=== PATIENT | male | born 2005 | race Caucasian/White ===

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

== ENCOUNTER 2024-01-15 09:37 | Emergency (ER) | payer OTHER, SELFPAY ==
[2024-01-15 09:39] VITALS: BP 127/74; PULSE 85; RESP 16; TEMP 36.5; O2SAT 97
--- NOTE | 2024-01-15 09:54 | W.ED.SEIZURE ---
HPI - Seizure General: Chief Complaint: Seizure Stated Complaint: SEIZURES Time Seen by Provider: 01/15/24 09:43 Source: patient Mode of arrival: ambulatory History of Present Illness: HPI Narrative: 19-year-old female who presents to the emergency room with complaints of seizure. Has a known seizure disorder in the past was on medication he states it started that he was stopped taking approximately 3 years ago because it been so long since he had had a seizure. Patient states he was taking a medication that began with a T? (Tegretol). He is not currently seeing neurology. MD complaint: seizure Seizure History: Yes Place: [facility] Associated symptoms: Deny chest pain, chills, confusion, cough, diaphoresis, fever(s), anorexia, malaise, rash, short of breath, syncope or weakness Treatments prior to arrival: none Review of Systems Const: Denies: fever(s), chills, malaise or diaphoresis Card: Denies: chest pain or syncope Resp: Denies: dyspnea GI: Denies: abdominal pain : Denies: dysuria, urinary frequency or urinary urgency Musc: Denies: neck pain or back pain Skin/Breast: Denies: rash Neuro: Denies: confusion PFSH ED PFSH: Medical History (Updated 01/15/24 @ 10:29 by Robbie Bucio DO) Seizure disorder Physical Exam Const: COMMON NORMALS: no acute distress GENERAL APPEARANCE: cooperative and comfortable ORIENTATION/CONSCIOUSNESS: Yes awake, Yes oriented to person, Yes oriented to place and Yes oriented to time HENMT: COMMON NORMALS: normocephalic, atraumatic and hearing grossly normal bilaterally HEAD & SCALP: normocephalic and atraumatic Resp: COMMON NORMALS: normal respiratory effort, No retractions, No use of accessory muscles and clear to auscultation bilaterally AUSCULTATION: clear to auscultation bilaterally Cardio: COMMON NORMALS: regular rate, regular rhythm and No murmurs present (Cardio) RATE: regular rate RHYTHM: regular rhythm GI: COMMON NORMALS: Soft to palpation and No hepatosplenomegaly present AUSCULTATION: Yes normoactive bowel sounds PALPATION: Yes Soft to palpation, No Tenderness to palpation present (GI), No Guarding due to palpation present (GI) and Yes No hepatosplenomegaly present Extremity: COMMON NORMALS: normal to inspection, capillary refill normal, no clubbing, cyanosis or edema, no calf tenderness and no pedal edema Neuro: SENSORIUM/ORIENTATION: Yes oriented to person, Yes oriented to place and Yes oriented to time Skin: COMMON NORMALS: no rashes or lesions noted GENERAL SKIN EXAM: no rashes or lesions noted Course Vital Signs: Vital signs: Vital Signs Temperature 97.7 F 01/15/24 09:39 Pulse Rate 75 01/15/24 10:59 Respiratory Rate 15 01/15/24 10:59 Blood Pressure 109/55 01/15/24 10:59 Pulse Oximetry 100 01/15/24 10:59 Oxygen Delivery Me thod Room Air 01/15/24 09:39 MDM - Seizure MDM Narrative Medical decision making narrative: No recurrent seizures since arriving here CPK and lactic acid are both up to think is related to seizure. He is feeling better he is past postictal phase will discharge patient home we will set him up for outpatient EEG sleep deprived as well as a neurology consult. Return if is further seizures at this point with 1 breakthrough seizure associated with lack of sleep and alcohol use did not restart his anticoagulants. Medical Records Attestation: I reviewed the patient's medical records. Lab Data Attestation: I reviewed the patient's lab results. 01/15/24 09:27 Labs: Laboratory Results WBC 10.81 10^3/uL (4.5-13.0) 01/15/24 09:27 RBC 4.70 10^6/uL (3.85-5.65) 01/15/24 09:27 Hgb 14.50 g/dL (13.2-15.6) 01/15/24 09:27 Hct 43.8 % (37-53) 01/15/24 09:27 MCV 93.2 fl (82-101) 01/15/24 09: MCH 30.9 pg (27-33) 01/15/24 09: MCHC 33.1 g/dL (30-55) 01/15/24 09: RDW 13.1 % (12.1-15.1) 01/15/24 09: Plt Count 339 10^3/cmm (157-399) 01/15/24 09: MPV 8.6 fL (7.4-10.4) 01/15/24 09:27 Neut % (Auto) 52.9 % 01/15/24 09:27 Lymph % (Auto) 35.9 % 01/15/24 09:27 [place] % (Auto) 9.0 % 01/15/24 09:27 Eos % (Auto) 1.3 % 01/15/24 09:27 Baso % (Auto) 0.6 % 01/15/24 09:27 Neut # (Auto) 5.73 10^3/uL (1.8-8.0) 01/15/24 09:27 Lymph # (Auto) 3.9 10^3/uL (1.5-6.5) 01/15/24 09:27 [place] # (Auto) 1.0 10^3/uL (0.2-0.9) H 01/15/24 09:27 Eos # (Auto) 0.1 10^3/uL (0.0-0.8) 01/15/24 09:27 Baso # (Auto) 0.1 10^3/uL (0.0-0.1) 01/15/24 09:27 Nucleated RBC % (auto) 0 % 01/15/24 09:27 Nucleated RBCs # 0.0 /100WBC 01/15/24 09:27 Lactic Acid 11.0 mmol/L (0.5-2.2) H* 01/15/24 09:27 Creatine Kinase 352 U/L (39-308) H* 01/15/24 09:27 No radiology studies performed this visit Discharge Plan Discharge Patient Disposition: Home Clinical Impression: Generalized seizure Condition: Stable Prescriptions: No Action No Known Home Medications Discharge Orders: Discharge ED (Routine); Ordered 01/15/24 Ordered By: Robbie Bucio Discharge Diet: Usual diet Discharge Activity: Increase activity as tolerated Patient Instructions: Opioid Safety, Pain Management, Seizures Activity Restrictions/Additional Instructions: Thank you for choosing [facility] for your healthcare needs today. Please realize this is an emergency room and that we are providing you with a medical screening exam and this may not be complete and all inclusive of all the testing and or work up that you may need to determine your ailment or severity of your illness. It is very important that you follow up as instructed or that you return to the Emergency Department should you have concerns or if your condition changes or worsens in any way. You are seen today after a seizure. Recommend that you do not drive a motor vehicle until cleared by neurology. Since she requested to leave before the labs were completed we did not have your full workup available at the time you are discharged. We will ask case management to make arrangements for you to follow-up with neurology so they can evaluate to make recommendations whether or not you should be restarted on's antiseizure medications. If you have recurrent seizures please return to the nearest emergency room. 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
[2024-01-15 10:12] LABS: Basophils # 0.1 10^3/uL (0.0-0.1); Basophils % 0.6 %; Eosinophils # 0.1 10^3/uL (0.0-0.8); Eosinophils % 1.3 %; Hematocrit 43.8 % (37-53); Lymphocytes # 3.9 10^3/uL (1.5-6.5); Lymphocytes % 35.9 %; Mean Corpuscular HGB Conc 33.1 g/dL (30-55); Mean Corpuscular Hemoglobin 30.9 pg (27-33); Mean Corpuscular Volume 93.2 fl (82-101); Mean Platelet Volume 8.6 fL (7.4-10.4); Neutrophils # 5.73 10^3/uL (1.8-8.0); Neutrophils % 52.9 %; Nucleated Red Blood Cells % 0 %; Platelet Count 339 10^3/cmm (157-399); Red Cell Distribution Width 13.1 % (12.1-15.1); White Blood Count 10.81 10^3/uL (4.5-13.0)
[2024-01-15 10:35] LABS: Creatine Phosphokinase 352 U/L (39-308)
[2024-01-15 10:59] VITALS: BP 109/55; PULSE 75; RESP 15; O2SAT 100
[2024-01-15 11:56] LABS: Reflex Lactate Order REFLEX LACTIC ORDERD
--- NOTE | 2024-01-15 22:26 | DCPLANNER ---
Message sent to Neurology for a follow up on Seizures.
== END 2024-01-15 11:02 | disposition home or self-care (01) ==
PROVIDERS: Emergency Provider Family Medicine
DX: G40.409 Other generalized epilepsy and epileptic syndromes, not intractable, without status epilepticus (principal)
CPT/HCPCS: 82550; 83605; 85025; 99283

== ENCOUNTER → 2024-04-11 16:31 | Outpatient (BNVA) | payer OTHER, SELFPAY | PROVIDERS: Visit Provider Emergency Medicine | DX: M25.532 Pain in left wrist (principal) | CPT/HCPCS: 73130 ==